=== PATIENT | male | born 2000 | race Caucasian/White ===

== ENCOUNTER 2023-11-09 12:04 | Emergency (ER) | payer BC, SELFPAY ==
[2023-11-09 12:22] VITALS: BP 104/90; PULSE 108; RESP 16; TEMP 36.4; O2SAT 98
--- NOTE | 2023-11-09 12:28 | ED.URI ---
HPI - URI/Sore Throat General Chief Complaint: Upper Respiratory Infection Stated Complaint: SORE THROAT Time Seen by Provider: 11/09/23 12:21 Source: patient and RN notes reviewed Mode of arrival: ambulatory Limitations: no limitations History of Present Illness HPI Narrative: Patient presents today complaining of sore throat since last night. Denies any other symptoms to include cough, congestion, rhinorrhea, ear pain, fever. Denies known sick contacts. Currently rates his pain 6/10 and has tried no [id number] treatment prior to arrival. Related Data Home Medications Medication Instructions Recorded Confirmed cetirizine 10 mg tablet (Zyrtec) 10 mg PO DAILY PRN allergy symptoms 04/09/20 11/09/23 Allergies Allergy/AdvReac Type Severity Reaction Status Date / Time chlorpheniramine Allergy Mild Unknown Unverified 11/09/23 12:19 phenylephrine Allergy Mild Unknown Unverified 11/09/23 12:19 scopolamine Allergy Mild Unknown Unverified 11/09/23 12:19 Cephalosporins Allergy Unknown RASH Verified 02/04/09 12:40 clavulanic acid Allergy Unknown RASH Verified 02/04/09 12:40 Penicillins Allergy Unknown Unknown Verified 11/09/23 12:19 ANTICHOLINERGICS,OTHER Allergy Mild Unknown Uncoded 11/09/23 12:19 BETALACTAMASEIN Allergy Unknown RASH Uncoded 02/04/09 12:40 Review of Systems Review of Systems: CONSTITUTIONAL: Denies body aches, fever, chills, or sweats. EYES: Denies visual changes, redness, or discharge. ENT: Denies rhinorrhea, congestion, or otalgia.+ sore throat CARDIOVASCULAR: Denies chest pain, palpitations, or edema. RESPIRATORY: Denies cough or dyspnea. GASTROINTESTINAL: Denies abdominal pain, nausea, vomiting, or diarrhea. GENITOURINARY: Denies dysuria or hematuria. SKIN: Denies rash, itching, or wounds. MUSCULOSKELETAL: Denies back pain, joint pain, or myalgia. NEUROLOGIC: Denies headache, numbness, tingling, or weakness. PSYCH: Denies depression or anxiety. [facility] Past Medical History Medical History Allergies Asthma Chronic cough COVID (08/28/21) tested positive at home 08/30/2021 Moderate persistent asthma, uncomplicated Seasonal allergic rhinitis Social History Social History Smoking status: Never smoker Alcohol intake: never Substance use: never Substance use type: does not use Comments At time of signature, I have reviewed and agree with nursing past medical, surgical, social and family history unless otherwise noted. Please see nursing chart for further information. There is no relevant family history pertinent to the presenting complaint Exam Narrative: GENERAL: Well-appearing, well-nourished, and in no acute distress. HEAD: Normocephalic, atraumatic. EYES: EOMI. No redness or drainage. Conjunctivae normal. ENT: Mucous membranes pink and moist. Nares clear. No rhinorrhea. TMs normal bilaterally. Throat normal. Uvula midline. NECK: Normal AROM. Supple. No lymphadenopathy. CHEST: No respiratory distress. Clear to auscultation. HEART: Regular rate and rhythm. No murmur appreciated. EXTREMITIES: Normal range of motion. No edema. SKIN: Warm, dry, no rash. Capillary refill normal. Normal skin turgor. NEURO: No focal deficits. Alert and oriented x3. Gait steady. PSYCH: Normal affect. No signs of depression or anxiety. Course Course Level of Care: Express Care Visit Vital Signs Vital signs: Vital Signs Temperature 97.6 F 11/09/23 12:22 Pulse Rate 108 H 11/09/23 12:22 Respiratory Rate 16 11/09/23 12:22 Blood Pressure 104/90 11/09/23 12:22 Pulse Oximetry 98 11/09/23 12:22 Temperature 97.6 F 11/09/23 12:22 Pulse Rate 108 H 11/09/23 12:22 Respiratory Rate 16 11/09/23 12:22 Blood Pressure 104/90 11/09/23 12:22 Pulse Oximetry 98 11/09/23 12:22 Reviewed MDM - URI/Sore Throat MDM Narrative Medical decisi
== END 2023-11-09 12:47 | disposition home or self-care (01) ==
PROVIDERS: Emergency Provider Nurse Practitioner; PCP Family Medicine
DX: J02.9 Acute pharyngitis, unspecified (principal); J45.909 Unspecified asthma, uncomplicated; Z86.16 Personal history of COVID-19
CPT/HCPCS: 87081; 87880; 99213; G0463

== ENCOUNTER 2024-12-08 13:45 | Emergency (ER) | payer OTHER, SELFPAY ==
--- NOTE | 2024-12-08 13:55 | ED_ITS ---
HPI - URI/Sore Throat General Chief Complaint: Upper Respiratory Infection Stated Complaint: Flu Symptoms Time Seen by Provider: 12/08/24 14:05 Source: patient Mode of arrival: ambulatory Limitations: no limitations History of Present Illness HPI Narrative: Ruslan is a 24-year-old male patient presenting to the clinic today with complaints of possible flu-like symptoms. He reports he is having runny nose, cough, congestion, sore throat and a low-grade fever. Symptoms have been going on for approximately 4 days. MD elicited complaint: fever, cough, sore throat and nasal congestion Related Data Home Medications ?Medication ?Instructions ?Recorded ?Confirmed ?Last Taken ?Type cetirizine 10 mg tablet (Zyrtec) 10 mg PO DAILY PRN allergy symptoms 04/09/20 11/09/23 Unknown History Allergies Allergy/AdvReac Type Severity Reaction Status Date / Time chlorpheniramine Allergy Mild Unknown Unverified 11/09/23 12:19 phenylephrine Allergy Mild Unknown Unverified 11/09/23 12:19 scopolamine Allergy Mild Unknown Unverified 11/09/23 12:19 Cephalosporins Allergy Unknown RASH Verified 02/04/09 12:40 clavulanic acid Allergy Unknown RASH Verified 02/04/09 12:40 Penicillins Allergy Unknown Unknown Verified 11/09/23 12:19 ANTICHOLINERGICS,OTHER Allergy Mild Unknown Uncoded 11/09/23 12:19 BETALACTAMASEIN Allergy Unknown RASH Uncoded 02/04/09 12:40 Review of Systems Review of Systems: Pertinent positives per HPI. Patient denies any rash, headache, visual changes, dizziness, shortness of breath, chest pain, palpitations, nausea, vomiting, diarrhea, constipation, abdominal pain, or any urinary issues. [facility] Past Medical History Medical History Allergies Asthma Chronic cough COVID (08/28/21) tested positive at home 08/30/2021 Moderate persistent asthma, uncomplicated Seasonal allergic rhinitis Social History Social History Smoking status: Never smoker Alcohol intake: never Substance use: never Substance use type: does not use Comments At the time of my signature, I reviewed and agree with the nursing past medical, surgical, social, and family history. There is no relevant family history pertinent to the patient complaint. Exam Narrative: General: Well-developed, well nourished, in no apparent distress Head: Normocephalic, atraumatic Eyes: Pupils equally round and reactive to light bilaterally, EOM intact, sclera and conjunctive clear, no discharge, lids normal Ears: TMs intact and congested, ear canals clear, no drainage, grossly hearing normal. Nose: Nares patent, clear nasal discharge, no inflammation, no sinus tenderness. Mouth: Oral pharynx red without lesions or masses, good dentition, MMM. Postn yair drip Neck: Supple, trachea midline, no enlargement of anterior or posterior cervical nodes, no thyroid masses or goiter palpable. Cardio: Regular rate and rhythm, s1 and s2 normal, no murmur appreciated. Resp: Clear to auscultation bilaterally, no rhonchi, rales, wheezing or rubs Course Course Emergency Course: Portions of this record may have been created with voice recognition software. Level of Care: Express Care Visit Vital Signs Vital signs: Vital Signs Temperature 37.7 C H 12/08/24 13:57 Pulse Rate 116 H 12/08/24 13:57 Respiratory Rate 18 12/08/24 13:57 Blood Pressure 152/79 H 12/08/24 13:57 Pulse Oximetry 100 12/08/24 13:57 Temperature 37.7 C H 12/08/24 13:57 Pulse Rate 116 H 12/08/24 13:57 Respiratory Rate 18 12/08/24 13:57 Blood Pressure 152/79 H 12/08/24 13:57 Pulse Oximetry 100 12/08/24 13:57 Vital signs reviewed MDM - URI/Sore Throat MDM Narrative Medical decision making narrative: At the time of visit patient is resting comfortably on the exam table. Patient appears to be nontoxic. Labs: Influenza and strep test were negative in the clinic today. We will send strep for culture. Plan: I suspect patient has URI/pharyngitis/postnasal drip. Supportive measures were discussed with the patient and they voiced understanding discharge instructions and agrees to treatment plan. Return precautions reviewed Differential Diagnosis Differential diagnosis: Likely upper respiratory infection, otitis media, sinusitis, viral infection, bronchitis, influenza, pharyngitis and other (COVID) Lab Data Labs: Lab Results 12/08/24 Range/Units 14:08 POC Influenza A Ag Negative (Negative) POC Influenza B Ag Negative (Negative) Discharge Plan Discharge Clinical Impression: Viral infection Upper respiratory infection Qualifiers: URI type: unspecified URI Qualified Code(s): J06.9 - Acute upper respiratory infection, unspecified Pharyngitis Qualifiers: Pharyngitis/tonsillitis etiology: unspecified etiology Qualified Code(s): J02.9 - Acute pharyngitis, unspecified Patient Disposition: Home, Self-Care Condition: Stable Instructions: Antibiotic Form, Pharyngitis (ED), Viral Syndrome (ED), Cold Symptoms (ED) Additional Instructions: Take prescription medications only as prescribed-prednisone Increase fluids and stay well hydrated Tylenol/motrin for pain/fever Flonase and OTC antihistamines as directed Vicks vapor rub to open sinuses Sinus rinses for congestion Cepacol spray, cough drops, throat lozenges, warm tea with honey/lemon, gargle salt water to soothe throat BRAT diet for diarrhea Clear liquids x 24 hours then advance as tolerated for nausea/vomiting Go to the ED if you develop a worsening in your condition- high fever not controlled by Tylenol or Motrin, dehydration, weakness, lethargy, shortness of breath, or chest pain. Follow up with your PCP in 3-5 days if symptoms persist. Patient Language: Icelandic Prescriptions: New prednisone 20 mg tablet 40 mg PO DAILY 5 Days Qty: 10 0RF No Action fluticasone propionate [Flonase Allergy Relief] 50 mcg/actuation spray,suspension 1 spray NASAL BID Qty: 15.8 11RF Rx Instructions: administer into each nostril azelastine 0.15 % (205.5 mcg) spray,non-aerosol 1 spray intranasal BID Qty: 30 11RF Rx Instructions: administer into each nostril cetirizine [Zyrtec] 10 mg tablet 10 mg PO DAILY PRN (Reason: allergy symptoms) montelukast 10 mg tablet 10 mg PO DAILY Qty: 30 11RF Follow-up/Referrals: PHYSICIAN,[employer]IVE [Primary Care Provider] - Stand Alone Forms: Work/School Release IP Time of Disposition: 14:14 Quality NIHSS Nursing Documentation ED NIHSS nursing documentation: reviewed/agree
[2024-12-08 13:57] VITALS: BP 152/79; PULSE 116; RESP 18; TEMP 37.7; O2SAT 100
[2024-12-08 14:10] LABS: EDINFLUASCREEN Negative (Negative); EDINFLUBSCREEN Negative (Negative)
[2024-12-08 14:18] LABS: EDSTREPNEGPOS1 Negative (Negative)
== END 2024-12-08 14:16 | disposition home or self-care (01) ==
PROVIDERS: Emergency Provider Nurse Practitioner Family
DX: B34.9 Viral infection, unspecified (principal); J06.9 Acute upper respiratory infection, unspecified; J02.9 Acute pharyngitis, unspecified; J45.909 Unspecified asthma, uncomplicated; Z86.16 Personal history of COVID-19
CPT/HCPCS: 87081; 87804; 87880; 99213; G0463